=== PATIENT | male | born 1945 | race Caucasian/White ===

== ENCOUNTER 2016-07-20 05:51 | Emergency (ER) | payer MEDICARE, OTHER ==
--- NOTE | 2016-07-25 09:58 | CO ---
ADMIT: 07/20/2016 RM/LOC: [facility] MR#: [id number] [address] CONRADO PRESLEY [address] [place] [address] Consultation SEX: M AGE: 71 : 1945 DATE OF CONSULTATION: 07/20/2016 ATTENDING PHYSICIAN: Magdiel Guerrero CONSULTING PHYSICIAN: Saran Castillo MD REASON FOR CONSULTATION: Stroke. HISTORY OF PRESENT ILLNESS: Mr. Presley is a 71-year-old gentleman, who was watching TV last night. He noticed while he was watching TV that his vision in his right eye got really constricted, but then subsequently returned closer to normal. He said he kind of felt something flow through his eye or across his eye he thought. This was in the right eye. He then fell on the floor when he was getting up at 5:30. He had been up and down all night prepping for a colonoscopy with Dr. Hoskins. During this time, he had been normal with the exception of 5:30, which was the first time that he had noted that there were deficits. He had been asleep before that though and so this is actually more of a [id number] stroke presentation because he is uncertain as to when the last time he was truly normal was. He presented with left-sided weakness. He was able to assist his with getting up with some use of the left arm and with use of the left leg. Since even that time an hour and a half ago, he has progressively lost more function in his arm. PAST MEDICAL HISTORY: Hypercholesterolemia, basal cell carcinoma, sinus disease. MEDICATIONS: 1. Lipoflavonoid. 2. Loratadine. 3. Atorvastatin. 4. [place]-3. 5. Gingko. 6. Ginseng. 7. Vitamin D3. 8. Calcium. SOCIAL HISTORY: Occasionally drinks alcohol. He is nonsmoker. FAMILY HISTORY: No history of neurosurgical disease. REVIEW OF SYSTEMS: Complete review of systems was obtained and annotated in the history of present illness. ALLERGIES: NONE KNOWN. PHYSICAL EXAMINATION: VITAL SIGNS: Initial vitals; blood pressure 172/84, is 144 systolic now; pulse 59; respiring 18 times a minute; 96.3 degrees; 98% on room air. GENERAL: He is an otherwise healthy-appearing gentleman. ADMIT: 07/20/2016 RM/LOC: [facility] MR#: [id number] [address] CONRADO PRESLEY [address] [place] [address] Consultation SEX: M AGE: 71 : 1945 HEENT: An atraumatic head. No scleral icterus. Clear oropharynx. LUNGS: Normal respiratory excursion. ABDOMEN: Soft abdomen. EXTREMITIES: 2+ radial pulses. NEUROLOGICAL EXAMINATION: MENTAL STATUS: He is awake, alert, oriented x4. Speech is dysphonic and dysarthric. His affect is blunted. His thought content is normal. CRANIAL NERVES: Cranial nerves II through XII are individually tested. He has a left-sided facial droop, left-sided tongue deviation, and his pupils are equally round and reactive to light. MOTOR EXAM: Motor exam reveals a dense hemiplegia in the left arm with some sensation in that arm with 2/5 strength in the left leg. He has normal strength and function on the right side. Sensation appears to be intact to light touch in the right side. Deep tendon reflexes 2/4 in the right side, 1/4 on the left side. CEREBELLAR: No cerebellar signs over the left side is not really testable. GAIT: Not testable. ASSESSMENT AND PLAN: Mr. Presley is a very pleasant 71-year-old gentleman, who looks like he has a right-sided carotid occlusion all the way up to the top of the carotid with some blush from cross fill on the CTA of the brain crossing to the contralateral side. His blood pressure is a bit lower than when he came in, which would normally be acceptable, although it sounds like he has worsened some even since 5:30 this morning with his presumed acute carotid occlusion and likely hypoperfusion increasing his blood pressure in the ER is reasonable recommendation at this point. Dr. Guerrero has called in for transfer to [facility] as we do not currently have in-house Neurology available to help manage this patient if I would keep him here. Because of this, he will need to be transferred. I discussed all this with his . Unfortunately, I do not know if there is anything that we can really do at this point other than increasing his blood pressure that is likely to help with areas of brain abnormality has stroke. We would not delay his transfer for MRI here unless requested by transferring facility, although MRI seems like will be necessary. Saran Castillo MD/ kwadwo JOB #: [id number] CC: Magdiel Guerrero, Attending Physician Errol Hoskins, Family Physician
--- NOTE | 2016-07-29 19:07 | ER ---
ADMIT: 07/20/2016 RM/LOC: ER [facility] MR#: [id number] [address] [address] CONRADO OLIVEROS [address] [place] [address] Emergency Room Report SEX: M AGE: 71 : 1945 DATE: 07/20/2016 CHIEF COMPLAINT: Headache. HISTORY OF PRESENT ILLNESS: The patient is a 71-year-old male, who describes headache all night after experiencing visual disturbance where it became blurred in his right visual field, watching TV last night. He has been up all night, [facility], fell this morning at 5:30, again getting up to prep for the colonoscopy, was unable to get up. found him on the floor, unable to speak clearly, and having obvious left-sided weakness. Paramedics were called. Stroke alert called in the field with blood sugar 114, dense left hemiparesis and what they described as a blown left pupil. 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 Denies any chest pain, shortness of breath, or previous stroke. ALLERGIES: NONE. MEDICATIONS: 1. Loratadine. 2. [place] 3. 3. Atorvastatin. 4. Gingko. 5. Ginseng. 6. Vitamin D. 7. Calcium. 8. Lipoflavonoid. ILLNESSES: Hyperlipidemia and chronic sinusitis. OPERATIONS: Right inguinal hernia repair and basal cell carcinoma removal right eyelid. SOCIAL HISTORY: , nonsmoker, occasional alcoholic beverage none recently. No illicit drugs. REVIEW OF SYSTEMS: A 12-point review of systems negative for all other systems, illnesses, or operations except as outlined above. FAMILY HISTORY: Negative for stroke or premature heart disease. PHYSICAL EXAMINATION: VITAL SIGNS: Temp 96.3, pulse 59, respirations 18, BP 172/84, and SaO2 of 98% on room air. GENERAL: Nontoxic, non-diaphoretic without jaundice or icterus. HEENT: Normocephalic. Obvious deformed left pupil, but reactive. Obvious left complete hemianopsia noted. No evidence of epistaxis, rhinorrhea, or otorrhea. NECK: Decreased carotid upstroke on the right without bruit. CHEST: Clear breath sounds and equal. HEART: Regular rate and rhythm without murmur, gallop, or edema. ADMIT: 07/20/2016 RM/LOC: ER [facility] MR#: [id number] [address] [address] PRAVEENCONRADO WISEMAN Corby [address] [place] [address] Emergency Room Report SEX: M AGE: 71 : 1945 ABDOMEN: Soft, nontender, and nondistended without mass or megaly. Bowel sounds hypoactive. EXTREMITIES: No evidence of Homans sign, synovitis, or dermatitis. NEURO: Dense left hemiparesis, able answer questions easily, visual field deficit complete on the left, complete left facial palsy, complete drift left arm, moderate drift left leg, marked ataxia both left upper and lower extremity. Unable to feel left leg, arm, and slight loss of fluency and slurring with inattention left leg. Total stroke scale 21 on arrival. MEDICAL DECISION MAKING: CT shows hyperdense right middle cerebral artery and right internal carotid. CTA confirms collateral flow, but dense right MCA stroke. EKG shows sinus rhythm without ST-T or Q-wave change, prolonged QTC of 517 milliseconds. No prior tracing. Chest x-ray, negative. Normal CBC, INR. CMP pending. Alcohol tox screen pending. Discussed case with Dr. Saran Castillo, Neurosurgery, who suggested transfer to neuro-plant worker at [facility]. Discussed the case with Dr. Shine, who agreed to accept. Due to flight conditions, unable fly. We will transfer by [facility] code 3. Due to the patient's presentation, findings, and intervention, 90 minutes of critical care is warranted. DIAGNOSIS: Right middle cerebral artery stroke. RECOMMENDATION: Transfer to [facility]. ADMISSION/DISCHARGE CONDITION: Critical. EDIT: 07/20/2016 0801 njv Magdiel Guerrero MD/ kwadwo JOB #: [id number] CC: Magdiel Guerrero MD, Attending Physician Errol Hoskins DO, Family Physician Saran Castillo MD
== END 2016-07-20 07:34 | disposition short-term general hospital (02) ==
LOC: ER 05:51
DX: I63.311 Cerebral infarction due to thrombosis of right middle cerebral artery (principal); E78.5 Hyperlipidemia, unspecified; Z79.899 Other long term (current) drug therapy